=== PATIENT | male | born 2000 | race Caucasian/White ===

== ENCOUNTER 2019-01-08 22:27 | Emergency (ER) | payer OTHER ==
[2019-01-08 22:35] VITALS: BP 156/95
[2019-01-08] MEDS ORDERED: HYDROMORPHONE HCL INJ/PF 2 MG/ML AMPULE IM PRN (22:48)
[2019-01-08] MEDS ORDERED: SILVER SULFADIAZINE 1% CREAM 25 GM TP ONE (22:49)
[2019-01-08] MEDS ORDERED: KETOROLAC TROMETHAMINE 60 MG/2 ML SDV IM ONE (22:49)
[2019-01-08] MEDS ORDERED: ONDANSETRON 4 MG TAB.RAPDIS PO ONE (22:50)
[2019-01-08] MEDS ORDERED: DIPH/PERTUSS(ACELL)/TETANUS VAC/PF 0.5 ML SYR (>=10YO) IM ONE (22:50)
[2019-01-08] MEDS ORDERED: HYDROCODONE/ACETAMINOPHEN 5-325 MG (6 TAB/ER DISP) PO PRN (22:50)
[2019-01-08] MEDS ORDERED: ONDANSETRON ODT 4 MG TAB (6 TAB/ER DISP) PO PRN (22:50)
--- NOTE | 2019-01-08 22:56 | ER Document Report ---
ED General - General Chief Complaint: Burn Stated Complaint: BURNED FOOT Time Seen by Provider: 01/08/19 22:48 Notes: Patient is a 18-year-old male without chronic medical problems who presents with a burn roughly 1% total body surface area over the left ankle and one third of the dorsum of the proximal left foot. This occurred after he tripped over a bucket of boiling water at work causing the water splashed up to the area not covered by his shoes. The patient describes severe, constant, burning pain to the affected area that has been unchanged since onset which was abrupt. Nothing seems to improve or worsen his pain. Tetanus not up-to-date. Denies any history of similar thompson in the past. Denies any other injuries or thompson to any other locations. TRAVEL OUTSIDE OF THE [place] IN LAST 30 DAYS: No - Related Data Allergies/Adverse Reactions: No Known Allergies Allergy (Unverified 01/08/19 22:31) Past Medical History - General Information source: Patient - Social History Smoking Status: Never Smoker Frequency of alcohol use: None Drug Abuse: None Lives with: Parents Family History: Reviewed & Not Pertinent Review of Systems - Review of Systems Notes: Constitutional: Negative for fever. Eyes: Negative for visual changes. ENT: Negative for facial injury Cardiovascular: Negative for chest injury. Respiratory: Negative for shortness of breath. Gastrointestinal: Negative for abdominal injury. Genitourinary: Negative for genital injury Musculoskeletal: Negative for back injury. Skin: Positive for thompson to the left ankle and foot Neurological: Negative for head injury. Physical Exam - Vital signs Vitals: Temp Pulse Resp BP Pulse Ox 98.0 F 94 H 16 156/95 H 98 01/08/19 22:33 01/08/19 22:33 01/08/19 22:33 01/08/19 22:33 01/08/19 22:33 Interpretation: Hypertensive Notes: PHYSICAL EXAMINATION: GENERAL: Appears extremely uncomfortable and in pain HEAD: Atraumatic, normocephalic. EYES: sclera anicteric, conjunctiva are normal. ENT: nares patent, Moist mucous membranes. NECK: Normal range of motion LUNGS: Normal work of breathing HEART: 2+ DP pulses bilaterally EXTREMITIES: no pitting or edema. No cyanosis. NEUROLOGICAL: No focal neurological deficits. Moves all extremities spontaneously and on command. PSYCH: Moderately anxious SKIN: Warm, Dry, normal turgor, approximately total 1% body surface area of burn although less than 0.25% is second-degree partial-thickness burn and the remainder is first-degree. This is located over the proximal one third of the dorsum of the left foot extending over the medial malleolus of the left ankle. The second-degree thompson are exclusively over the medial malleolus. Burn is not circumferential. Course - Re-evaluation Re-evalutation: 01/08/19 22:53 Patient presents with a total of 0.25% body surface area second-degree partial- thickness burn over the medial malleolus of the left ankle as well as additional first-degree thompson over the proximal one third of the dorsum of the left foot. This was from boiling water. The patient's pain was controlled with intramuscular hydromorphone and intramuscular ketorolac. The blistered areas were debrided and the wound was dressed with Silvadene, wrapped after dressing with topical gauze. The patient will be discharged home with oral pain medications as well as oral antiemetics. I have instructed wound care follow-up through wound management. No indication for referral to a burn center. At this time will discharge with return precautions and follow-up recommendations. Verbal discharge instructions given a the bedside and opportunity for questions given. Medication warnings reviewed. Patient is in agreement with this plan and has verbalized understanding of return precautions and the need for primary care follow-up in the next 24-72 hours. - Vital Signs Vital signs: Temp Pulse Resp BP Pulse Ox 98.0 F 94 H 16 156/95 H 98 01/08/19 22:33 01/08/19 22:33 01/08/19 22:33 01/08/19 22:33 01/08/19 22:33 Discharge - Discharge Clinical Impression: Burn of left ankle Qualifiers: Encounter type: initial encounter Burn degree: partial thickness (2nd degree) Qualified Code(s): T25.212A - Burn of second degree of left ankle, initial encounter Left foot burn Qualifiers: Encounter type: initial encounter Burn degree: superficial (1st degree) Qualified Code(s): T25.122A - Burn of first degree of left foot, initial encounter Condition: Good Disposition: HOME, SELF-CARE Additional Instructions: You were seen for thompson today. Please clean and dress the areas twice daily and then apply the Silvadene cream that you were sent home with. Keep the area clean and dressed. For your pain: Take ibuprofen 600 mg and acetaminophen 1000 mg every 6 hours together as needed for pain. If this does not control your pain you may take 15 mg of oral morphine every 4 hours as needed. Please be very careful about using the oral morphine and only use this for severe pain. Please return if you develop pus from the wounds, spreading redness from the areas, worsening pain, or any other symptoms that are worrisome to you. Please follow-up with your primary care doctor in the next 1-2 days as well as wound management. Prescriptions: Morphine Sulfate [Morphine Ir 15 mg Tablet] 15 mg PO Q6HP PRN #12 tablet PRN Reason: Forms: Return to School Referrals: SERGEY MARTINEZ MD [ACTIVE STAFF] - Follow up tomorrow
== END 2019-01-08 23:25 | disposition home or self-care (01) ==
LOC: ER 22:27
DX: T25.122A Burn of first degree of left foot, initial encounter (principal); T25.212A Burn of second degree of left ankle, initial encounter; X12.XXXA Contact with other hot fluids, initial encounter; Y99.0 Civilian activity done for income or pay; T31.0 Burns involving less than 10% of body surface; Z23 Encounter for immunization
CPT/HCPCS: 99283; 90715; J1885; J1170